=== PATIENT | male | born 1955 | race Caucasian/White ===

== ENCOUNTER 2016-10-10 21:45 | Emergency (ER) | payer OTHER ==
[~2016-10-10] VITALS: Ht 182.9 cm; Wt 75.0 kg
[~2016-10-10 21:45] MED LIST: CANE-70 MC; HYDR-4003 PO; MELO-253 PO; NPR500T PO; OMEP40CA36 PO; OXYC-474 PO; OXYC1TAB24 PO; PROP20TA5 PO
[2016-10-10 22:01] VITALS: BP 157/81; PULSE 92; RESP 18; O2SAT 92
--- NOTE | 2016-10-10 22:21 | ED.REPORT ---
HPI-General Illness Date of Service Oct 10, 2016 ED Provider: Ze Barton MD Pt is a 61 year old male with a history of chronic pain, left knee surgery, and hypertension who presents to the ED complaining of vomiting onset this morning. Pt states that he has had vomiting and diarrhea all day today. He takes Morphine and Percocet daily, but ran out of his medications today, which is a week earlier than he was prescribed. Additional symptoms include abdominal pain , decreased urination, and malaise. He denies fever, chills, rash, or any other symptoms. He goes to the [facility] to get his medications, and has an appointment in two days that he thinks is scheduled wrong. His prescription for Percocet was supposed to last 28 days (10/14/16), but he ran out today. Please see SULY report, it contradicts pt's story. Nursing Notes Stated Complaint: SICK,HIGH BLOOD PRESSURE Chief Complaint: General Complaint Nursing Notes Reviewed: Yes (Prong, HourlyNerd not reconciled) Allergies: Coded Allergies: duloxetine (Verified Allergy, Intermediate, rash , itching, 10/06/15) Penicillins (Verified Allergy, Unknown, 10/06/15) Tricyclic Compounds (Verified Allergy, Unknown, 10/06/15) prochlorperazine (Verified Allergy, Unknown, 10/06/15) Scheduled Meloxicam (Meloxicam) 15 Mg Tablet 15 MG PO DAILY Take half a tablet up to twice daily. Morphine Sulfate ER (Morphine Sulfate ER) 15 Mg Tablet 15 MG PO ONCE Morphine Sulfate ER (Morphine Sulfate ER) 30 Mg Capsule 30 MG PO BID Omeprazole (Omeprazole) 40 Mg Capsule.dr 40 MG PO BID Propranolol HCl (Propranolol HCl) Unknown Strength Tablet Unknown Dose PO BID Scheduled PRN Hydrocodone-Acetaminophen 5-325 mg (Hydrocodone-Acetaminophen 5-325 mg) 1 Each Tablet 1 TABLET PO Q4H PRN PRN For Pain Naproxen (Naproxen) 500 Mg Tab 500 MG PO BID PRN PRN For Pain Oxycodone (Roxicodone) 5 Mg Tablet 5 MG PO BID PRN PRN For Pain oxyCODONE (oxyCODONE) 5 Mg Tablet 5 MG PO Q3H PRN PRN For Pain oxyCODONE-Acetaminophen 5-325 mg (oxyCODONE-Acetaminophen 5-325 mg) 1 Each Tablet 1-2 TAB PO Q6H PRN PRN For Pain General Time Seen by MD: 22:16 Chief Complaint Vomiting Hx Obtained From: Patient Arrived By: Walk-in Sudden in Onset?: Yes Onset Occurred: 9 - 12 hours ago Context of Onset: Ran out of medication Symptom Duration: Constant Quality: Painful Severity: Current: Severe Severity: Maximum: Severe Context Related History: Reports Drug use/abuse suspected Recent Healthcare: No recent hospitalization, Recent doctor visit Similar Sx Previous: No Past Medical History Past Medical History Notes: Patient seen multiple ED visits for chronic knee pain. Last ED visit 10/05/16 - patient was declined narcotics Past Medical History 1. Right lung nodule. 2. Hypertension. 3. Osteoarthritis of bilateral knees. 4. Chronic pain. Reports: GERD, Hyperlipidemia, Hypertension Past Surgical History 1. Left knee arthroscopic, anterior cruciate ligament repair, and relocation. Smoking History Never Smoker Social History Alcohol Use: Denies alcohol use Drug Use: Denies drug use Other Social History: Good social support, , Local resident Occupation no work or school Ambulatory Status Independent Review of Systems Full Review of Systems Constitutional: Reports: Malaise, Denies: Chills, Fever GI: Reports: Abdominal pain, Diarrhea, Nausea, Vomiting Male: Reports Urination decreased Skin: Denies Rash Complete sys rev & neg: except as marked. Physical Exam Vital Signs Vital Signs Date Time Temp Pulse Resp B/P Pulse Ox O2 Delivery O2 Flow Rate FiO2 10/10/16 22:39 74 20 168/78 97 Room Air 10/10/16 22:01 36.9 92 18 157/81 92 Room Air Initial VS: Reviewed Head / Eyes: Atraumatic, Normocephalic Neck: Supple, Full range of motion Respiratory: No respiratory distress Lymphatic: No lymphadenopathy Extremities: Vascular intact, Neuro intact, No swelling, No tenderness Skin: Warm, Dry, No cyanosis Neurologic: Alert, Oriented, Nonfocal General/Constitutional: Awake, Alert Behavior: Positive: Restless Appearance / Presentation: Positive: Uncomfortable Significant withdrawal Head / Eyes: Atraumatic, Normocephalic Pupils: Positive: Dilated L, Dilated R Abdomen: Soft, Non-tender Interpretation & Diagnostics Lab Results Interpretation Result Diagram: 10/10/16 2210 10/10/16 2210 Test 10/10/16 22:10 9/3/17 23:10 White Blood Count 11.7th/mm3 (3.8-10.1) Red Blood Count 5.31mil/mm3 (4.40-5.80) Hemoglobin 14.5g/dL (13.8-17.2) Hematocrit 41.6% (41.0-50.0) Mean Corpuscular Volume 78.3fL (81-100) Mean Corpuscular Hemoglobin 27.3pg (27.0-35.0) Mean Corpuscular Hemoglobin Concent 34.9% (32.0-37.0) Red Cell Distribution Width 13.6% (12.3-15.4) Platelet Count 415bil/L (150-400) Neutrophils (%) (Auto) 79.2% (40-74) Lymphocytes (%) (Auto) 14.7% (14-46) Monocytes (%) (Auto) 5.2% (4-12) Eosinophils (%) (Auto) 0.4% (0-5) Basophils (%) (Auto) 0.3% (0-3) Sodium Level 139mEq/L (134-144) Potassium Level 3.5mEq/L (3.5-5.2) Chloride Level 100mEq/L (97-108) Carbon Dioxide Level 17mmol/L (18-29) Blood Urea Nitrogen 11mg/dL (6-24) Creatinine 0.94mg/dL (0.76-1.27) Estimat Glomerular Filtration Rate 87mL/min (>59) Glucose Level 112mg/dL (60-99) Calcium Level 9.6mg/dL (8.5-10.1) Total Bilirubin 0.8mg/dL (0.0-1.2) Aspartate Amino Transf (AST/SGOT) 17U/L (0-50) Alanine Aminotransferase (ALT/SGPT) 19U/L (0-44) Alkaline Phosphatase 99U/L (25-160) Troponin T 0.010ug/L (0.0-0.011) Total Protein 8.0g/dL (6.4-8.4) Albumin 4.7g/dL (3.4-5.0) Lab Results Interpretation: CBC mild leukocytosis CMP mildly low CO2 ECG Interpretation ECG Interpretation: Normal sinus rhythm Mild LVH Computer reads prolonged QT interval, that I disagree with Non-specific changes in V4, v5 No changes from 06/17/15 Time: 22:27 Interpreted by: ED physician Re-Eval/Medical Decision Med Decision/Clinical Course This is a 61-year-old male claims he is referred in by the [facility] and states he feels like he is going to . He is complaining of total body aches, sweats, vomiting, diarrhea, and knee pain. Turns out the patient claims that he is out of his chronic opiates-and is on high-dose extended release morphine as well as oxycodone, and claims initially that he was not given enough to make to his appointment. On exam the patient appears to be in severe withdrawal. His story about being not given enough medications does not add up, and when his [facility] report came through, indeed verified he was given an adequate supply on September 16 for 28 days, and should not already be out of medication. [facility] and unclear to me if his medications are provided through the [facility] provider, or for the [facility] pain clinic. Over this holiday after hours I was unable to reach anyone. In given the severity of withdrawal given a dose of his routine pain medicines here, and a written for 1 day of medication to get him through tomorrow which is a holiday, with the instructions he needs to follow up with his provider Tuesday to sort out the next step and they would be determining whether or not he gets any further medication. Patient expressed an acknowledgment of understanding. He is discharged in improved condition. Source of Hx: Old records Time of Eval: 23:13 Re-Evaluation/Progress Note: Patient rechecked. Discussed plan for discharge. Patient understands and agrees with plan. F/U instructions and RTER warnings given. All questions addressed at this time. Differential Diagnosis: Positive: Drug dependence, Negative: Allergies, Cellulitis, Medical clearance, Neutropenia, Pneumonia, Seizure disorder, Tonsillitis, acute Counseled Regarding: Diagnosis, Lab results, Need for follow-up, When/why to return to ED Discharge & Departure Primary Impression: Opiate withdrawal Disposition: Home Discharge Condition All VS Reviewed: Yes Condition: Stable Additional Instructions: 1. Your symptoms appear to be from opiate withdrawal. 2. It appears that you are out of your medications early, which should not be happening and the explanation you provided to me for your shortage is not adding up. Records indicate that Dr. Aníbal Mcintyre prescribed you a 28 days supply of medication on 09/16/16 (224 5m oxycodone, 56 30mg Morphine ER, and 28 15mg Morphine ER) - so you should not be out of medications today. 3. It is not appropropriate for the emergency department to be refilling chronic narcotics or controlled substance, and it is imperative - particularly at the doses that you are taking - that your prescriptions and use of medication be carefully managed by a single provider. 4. I have written for a one day supply for tomorrow to help you get through the holiday tomorrow. But you will need to go either to the [facility] clinic or the [facility] on Tuesday to see what they can do for you in this setting. Referrals: [facility] (PCP) Aníbal Mcintyre Scribe Attestation Portions of this note were transcribed by Sophia Huffman. I, Dr. Barton, personally performed the history, physical exam and medical decision-making; I reviewed and confirmed the accuracy of the information in the transcribed note. copies to: Aníbal Mcintyre; [facility] Ze Barton MD Oct 10, 2016 22:21 Sophia Huffman Oct 10, 2016 22:35
[2016-10-10] MEDS ORDERED: Morphine ER 100 mg (MS Contin) Tablet PO ONE (22:30)
[2016-10-10] MEDS ORDERED: oxyCODONE-Acetamin 5-325 mg Tablet PO ONE (22:30)
[2016-10-10] MEDS ORDERED: HYDROmorphone 1 mg/mL Inj IVPUSH ONE (22:30)
[2016-10-10] MEDS ORDERED: Ondansetron 2 mg/mL 2 mL Inj ONE (22:32)
[2016-10-10] MEDS ORDERED: Ondansetron 2 mg/mL 2 mL Inj IVPUSH ONE (22:35)
[2016-10-10 22:38] LABS: BASOPHILS % (AUTO) 0.3 % (0-3); EOSINOPHILS % (AUTO) 0.4 % (0-5); MONOCYTES % (AUTO) 5.2 % (4-12); Mean Corpuscular Hemoglobin 27.3 pg (27.0-35.0); Mean Corpuscular Volume 78.3 fL (81-100); NEUTROPHILS % (AUTO) 79.2 % (40-74); Platelet Count 415 bil/L (150-400)
[2016-10-10 22:39] VITALS: BP 168/78; PULSE 74; RESP 20; O2SAT 97
[2016-10-10] MEDS ORDERED: Morphine ER 30 mg (MS Contin) Tablet PO ONE (22:45)
[2016-10-10 22:57] LABS: TROPONIN T 0.01 ug/L (0.0-0.011)
[2016-10-10] MEDS ORDERED: OXYC-530 PO (22:57)
[2016-10-10] MEDS ORDERED: MORP-32 PO (22:57)
[2016-10-10] MEDS ORDERED: MORP30CP13 PO (22:57)
[2016-10-10] MEDS ORDERED: 0.9% Sodium Chloride 1,000 ML IV ONE (23:15)
[2016-10-10 23:52] VITALS: BP 168/83; PULSE 77; RESP 20; O2SAT 100
== END 2016-10-11 00:03 | disposition home or self-care (01) ==
LOC: SED 21:45
DX: F11.23 Opioid dependence with withdrawal (principal); R19.7 Diarrhea, unspecified; I10 Essential (primary) hypertension; K21.9 Gastro-esophageal reflux disease without esophagitis; E78.5 Hyperlipidemia, unspecified; Z88.0 Allergy status to penicillin; Z88.8 Allergy status to other drugs, medicaments and biological substances
CPT/HCPCS: 36415; 80053; 83605; 83690; 84484; 85025; 93005; 96361; 96374; 96375; 99285; J1170; J2405; J7030